=== PATIENT | female | born 1965 | race Two or more races ===

== ENCOUNTER 2024-04-27 06:39 | Day surgery (SDC) | payer OTHER ==
[2024-04-21 08:55] VITALS: BP 99/57
[2024-04-21 09:01] LABS: URINE APPEARANCE Clear; URINE BILIRRUBIN Negative (NEGATIVE); URINE BLOOD Negative; URINE COLOR Yellow; URINE EPITHELIAL CELLS 60.4 uL (0.0-38.8); URINE GLUCOSE Negative (NEGATIVE); URINE KETONE Negative (NEGATIVE); URINE LEUKOCYTE Negative; URINE NITRATE Negative; URINE PROTEIN Negative (NEGATIVE); URINE RBC 3.8 uL (0.0-20.8); URINE UROBILINOGEN 0.2 E.U./dl; URINE WBC 67.2 uL (0.0-23.2)
[2024-04-21 09:02] LABS: HEMATOCRIT 41.5 % (36.0-45.00); HEMOGLOBIN 13.5 g/dL (12.0-15.00); MEAN CELL VOLUME 88.5 fL (80.00-100.00); MEAN CORPUSCULAR HEMOGLOBIN 28.8 pg (27.00-32.0); MEAN CORPUSCULAR HGB CONC 32.6 g/dl (32.0-36.0); PLATELET COUNT 306 K/uL (150-450); RED BLOOD COUNT 4.69 M/uL (4.00-6.00)
[2024-04-21 09:10] LABS: URINE CAST 0.88 uL (0.0-1.40)
[2024-04-21 09:38] LABS: ALBUMIN 3.8 gm/dL (3.4-5.0); BILIRUBIN TOTAL 0.42 mg/dL (0.3-1.2); CALCIUM 9.6 mg/dL (8.5-10.1); CREATININE SERUM 0.66 mg/dL (0.55-1.02); GFR 91.98; GLOBULINA 3.8 G/DL (2.4-3.5); POTASSIUM 3.99 mEq/L (3.5-5.1); TOTAL PROTEIN 7.6 gm/dL (6.4-8.2)
[2024-04-21 13:05] LABS: INR 1.06; PARTIAL THROMBOPLASTIN TIME 26.8 SECONDS (22.0-34.0); PROTHROMBIN TIME 11.5 SECONDS (9.0-11.5)
[~2024-04-27] VITALS: Ht 157.5 cm; Wt 86.2 kg
[~2024-04-27 06:39] MED LIST: IRBESARTAN150 MG PO; METRONIDAZOLE375 MG; MOUNJARO2.5 MG/0.5 SQ; SINGULAIR5 MG PO; TAMOXIFEN CITRA20 MG PO; VITAMIN D
[2024-04-27] MEDS ORDERED: CLINDAMYCIN PHOSPHATE 150 MG/ML (900mg) ONE (10:25)
[2024-04-27] MEDS ORDERED: MORPHINE SULFATE 4 MG/ML VIAL IV ONE ×2 (14:10→14:15)
[2024-04-27] MEDS ORDERED: ONDANSETRON HCL 2 MG/ML VIAL ONE (14:20)
== END 2024-04-27 15:20 | disposition home or self-care (01) ==
LOC: CIR.AMB 06:39
PROVIDERS: ATTEND Orthopaedic Surgery
DX: M75.121 Complete rotator cuff tear or rupture of right shoulder, not specified as traumatic (principal); M75.21 Bicipital tendinitis, right shoulder; M24.111 Other articular cartilage disorders, right shoulder; Z88.6 Allergy status to analgesic agent; Z88.5 Allergy status to narcotic agent; Z88.0 Allergy status to penicillin; I10 Essential (primary) hypertension; J45.909 Unspecified asthma, uncomplicated; F41.9 Anxiety disorder, unspecified; K29.70 Gastritis, unspecified, without bleeding